=== PATIENT | male | born 1990 | race Caucasian/White ===

== ENCOUNTER 2021-04-30 13:46 | Emergency (ER) | payer MEDICAID ==
[~2021-04-30] VITALS: Ht 180.3 cm; Wt 95.3 kg
[~2021-04-30 13:46] MED LIST: ARIP5TAB10 PO
[2021-04-30 14:08] VITALS: BP 153/90
--- NOTE | 2021-04-30 14:10 | NUR ---
BIBS LEFT KNEE PAIN X3 NONTHS,SWELLING STARTED 2 DAYS AGO. RATES PAIN 10/10. NO APPARENT DEFORMITY NOTED. WILL CONTINUE TO MONITOR THE PATIENT.
--- NOTE | 2021-04-30 14:30 | NUR ---
The patient is alert and oriented x4. Patient does not wish to proceed with medical care recommended by Dr. Mallory Patient given information related to possible complications, up to and including , which could occur as a result of leaving the hospital at this time. Patient verbalizes understanding of risks involved due to leaving against medical advice. Patient refused to sign AMA form.
== END 2021-04-30 15:50 | disposition left against medical advice (07) ==
LOC: ER 14:34
DX: M25.562 Pain in left knee (principal); F20.9 Schizophrenia, unspecified; F31.9 Bipolar disorder, unspecified; Z79.899 Other long term (current) drug therapy

== ENCOUNTER 2021-12-29 12:05 | Emergency (ER) | payer MEDICAID ==
[~2021-12-29] VITALS: Ht 180.3 cm; Wt 74.8 kg
--- NOTE | 2021-12-29 12:20 | NUR ---
BIB [facility],AMBULATORY,C/O BILATERAL LEG PAIN 02/03 REQUESTING FOR PLACEMENT TOO. THE PATIENT IS ALERT AND ORIENTED X3. IN ROOM AIR AND DENIES SOB. RESPIRATION REGULAR AND UNLABORED. WILL CONTINUE TO MONITOR THE PATIENT.
--- NOTE | 2021-12-29 15:54 | NUR ---
COVID ANTIGEN SWAB DONE AND SENT TO THE LAB
--- NOTE | 2021-12-29 16:10 | NUR ---
URINE COLLECTED AND SENT TO THE LAB
[2021-12-29 16:35] LABS: BILIRUBIN,URINE NEGATIVE (NEGATIVE); COLOR,URINE YELLOW (YELLOW); LEUKOCYTE ESTERASE ,URINE NEGATIVE (NEGATIVE); NITRITE, URINE NEGATIVE (NEGATIVE); PROTEIN,URINE NEGATIVE (NEGATIVE); UGLUCOSE NEGATIVE (NEGATIVE); UROBILINOGEN,URINE 0.2 EU/dL (0.2)
[2021-12-29 16:36] LABS: BASOPHILS % (AUTO) 0.3 % (0.0-2.0); EOSINOPHILS % (AUTO) 1.2 % (0.0-6.0); HEMATOCRIT 45 % (39-51); HEMOGLOBIN 15.4 g/dL (13.5-17.5); LYMPHOCYTES # (AUTO) 1.2 K/uL (0.8-4.8); LYMPHOCYTES % (AUTO) 18.2 % (20.0-44.0); MEAN CORPUSCULAR HGB CONC 34 g/dl (31.0-36.0); MEAN CORPUSCULAR VOLUME 90 fL (80-96); MONOCYTES # (AUTO) 0.6 K/uL (0.1-1.30); MONOCYTES % (AUTO) 10.1 % (2.0-12.0); NEUTROPHILS # (AUTO) 4.4 K/uL (1.8-8.9); NEUTROPHILS % (AUTO) 70.2 % (43.0-81.0); PLATELET COUNT (AUTO) 218 K/uL (150-450); RED BLOOD CELL COUNT(AUTO) 5.03 MIL/uL (4.5-6.0); WHITE BLOOD COUNT (AUTO) 6.3 K/uL (4.3-11.0)
[2021-12-29 17:04] LABS: ALANINE AMINOTRANSFERASE 16 U/L (12-78); ALBUMIN 3.5 g/dL (3.4-5.0); ALCOHOL, BLOOD < 3 mg/dL (0-0); ALKALINE PHOSPHATASE 141 U/L (46-116); ASPARTATE AMINOTRANSFERASE 15 U/L (15-37); BILIRUBIN,DIRECT 0.1 mg/dL (0.0-0.2); BILIRUBIN,TOTAL 0.6 mg/dL (0.2-1.0); CALCIUM, SERUM 8.7 mg/dL (8.5-10.1); CARBON DIOXIDE 27 mmol/L (21-32); CHLORIDE 106 mmol/L (98-107); CREATININE 0.6 mg/dL (0.6-1.3); GLUCOSE 77 mg/dL (74-106); SODIUM SERUM 141 mmol/L (136-145); TOTAL PROTEIN, SERUM 6.8 g/dL (6.4-8.2); UREA NITROGEN, BLOOD 13 mg/dL (7-18)
[2021-12-29 17:06] LABS: ACETAMINOPHEN < 0 ug/ml (10-30)
[2021-12-29] MEDS ORDERED: ARIP5TAB10 PO (17:35)
[2021-12-29] MEDS ORDERED: IBUP-1955 PO (17:35)
[2021-12-29] MEDS ORDERED: KETOROLAC TROMETHAMINE INJ 30 MG/ML VIAL IM ONE (18:00)
[2021-12-29] MEDS ORDERED: ARIPIPRAZOLE 5 MG TABLET PO ONE (18:00)
[2021-12-29 18:41] VITALS: BP 129/70
--- NOTE | 2021-12-29 18:43 | NUR ---
Pt refused any other intervention and refusing homeless senior care placement. Discharge to previous living condition in NO obvious distress. Ambulatory-g ait steady
== END 2021-12-29 18:43 | disposition home or self-care (01) ==
LOC: ER 12:10
DX: M25.562 Pain in left knee (principal); F20.9 Schizophrenia, unspecified; Z20.822 Contact with and (suspected) exposure to COVID-19; F31.9 Bipolar disorder, unspecified; Z59.00 Homelessness unspecified; M79.672 Pain in left foot; M79.671 Pain in right foot
CPT/HCPCS: 36415; 73562; 80048; 80076; 80143; 80307; 80320; 81003; 85025; 87426; 99284; C9803; G0480

== ENCOUNTER 2022-03-06 08:59 | Emergency (ER) | payer SELFPAY ==
[~2022-03-06] VITALS: Ht 180.3 cm; Wt 86.2 kg
[2022-03-06 08:59] VITALS: BP 125/68
[~2022-03-06 08:59] MED LIST changes: +IBUP-1955 PO
--- NOTE | 2022-03-06 09:41 | NUR ---
PT SEEN AND EVALUATED BY DR LUNA, NO OBVIOUS INJURY NOTED. REQUESTING FOR PAIN MEDICATION REFILL, PT IS AMBULATORY W. STEADY GAIT. VSS. VERBALLY DISCHARGE BY DR LUNA.
== END 2022-03-06 09:43 | disposition home or self-care (01) ==
LOC: ER 09:01
DX: F29 Unspecified psychosis not due to a substance or known physiological condition (principal); F19.10 Other psychoactive substance abuse, uncomplicated; F20.9 Schizophrenia, unspecified; F31.9 Bipolar disorder, unspecified; Z60.2 Problems related to living alone; Z79.899 Other long term (current) drug therapy